=== PATIENT | female | born 1955 ===

== ENCOUNTER 2020-03-27 07:37 | Day surgery (SDC) | payer OTHER | END 2020-03-27 13:55 | disposition home or self-care (01) | LOC: AMB-ENDOS 07:37 → ADM 14:15 → AMB-ENDOS 14:15 | PROVIDERS: ATTEND Colon & Rectal Surgery | DX: D13.1 Benign neoplasm of stomach (principal); K64.1 Second degree hemorrhoids; K44.9 Diaphragmatic hernia without obstruction or gangrene ==